=== PATIENT | female | born 1950 | race Caucasian/White ===

== ENCOUNTER 2020-05-28 11:12 | Inpatient (IN) ==
[2020-05-28 11:56] LABS: ABS Lymphocytes 0.3 10^3/ul (1.0-4.8); ABS Monocytes 0.2 10^3/ul (0-0.8); ABS Neutrophils 4.4 10^3/ul (1.5-7.7); Eosinophil % 0.5 %; Hematocrit 28 % (35-47); Hemoglobin 9.3 g/dL (12.0-16.0); Lymphocyte % 6.2 %; Mean Corpuscular HGB Conc 34 g/dL (31-36); Mean Corpuscular Hemoglobin 35 pg (27-31); Mean Corpuscular Volume 102 fL (80-97); Mean Platelet Volume 9.2 fL (7.4-10.4); Nucleated Red Blood Cells % 0.1; Platelet Count 148 10^3/uL (150-450); Red Cell Distribution Width 16 % (10-15); White Blood Count 4.9 10^3/uL (3.5-10.8)
[2020-05-28 12:12] LABS: ALT 6 U/L (7-52); AST 49 U/L (13-39); Albumin 2.8 g/dL (3.2-5.2); Alkaline Phosphatase 262 U/L (34-104); Anion Gap 9 mmol/L (2-11); BUN/Creatinine Ratio 15.7 (8-20); Blood Urea Nitrogen 25 mg/dL (6-24); CO2 Carbon Dioxide 23 mmol/L (22-32); Calcium 9.2 mg/dL (8.6-10.3); Chloride 102 mmol/L (101-111); EGFR African American 39.1 (>60); EGFR Non-African American 32.3 (>60); Globulin 2.9 g/dL (2-4); Glucose 122 mg/dL (70-100); Lipase 20 U/L (11.0-82.0); Magnesium 1.6 mg/dL (1.9-2.7); Potassium 3.5 mmol/L (3.5-5.0); Sodium 134 mmol/L (135-145); Total Protein 5.7 g/dL (6.4-8.9)
[2020-05-28 12:16] LABS: INR 1.38 (0.82-1.09)
[2020-05-28 12:22] LABS: Alcohol, S < 10 mg/dL (<10)
[2020-05-28] MEDS ORDERED: Iodixanol (CONTRAST) 320 MG/ML 100 ML SDV IV ONE (12:40)
[2020-05-28] MEDS ORDERED: NS 0.9% 1000 ml BAG 1,000 ML IV ONE (12:42)
[2020-05-28] MEDS ORDERED: Magnesium Sulfate 2 gm BAG 2 GM/50 ML BAG IVPB ONE (13:11)
[2020-05-28] MEDS ORDERED: Morphine 4 MG/ML VIAL (1 ml) IV ONE (14:36)
[2020-05-28] MEDS: Heparin 5000 UNITS/ML 1 mL VIAL SUBCUT SCH (22:02)
[2020-05-29] MEDS: Ondansetron 4 mg VIAL 2 MG/ML 2 ml VIAL IV PRN ×4 (01:20→23:27)
[2020-05-29] MEDS: Heparin 5000 UNITS/ML 1 mL VIAL SUBCUT SCH ×3 (05:08→21:54)
[2020-05-29 05:54] LABS: ABS Eosinophils 0.1 10^3/ul (0-0.6); ABS Lymphocytes 0.4 10^3/ul (1.0-4.8); ABS Monocytes 0.2 10^3/ul (0-0.8); ABS Neutrophils 3.1 10^3/ul (1.5-7.7); Eosinophil % 1.4 %; Hematocrit 26 % (35-47); Hemoglobin 8.7 g/dL (12.0-16.0); Lymphocyte % 10.1 %; Mean Corpuscular HGB Conc 34 g/dL (31-36); Mean Corpuscular Hemoglobin 35 pg (27-31); Mean Corpuscular Volume 103 fL (80-97); Mean Platelet Volume 9.3 fL (7.4-10.4); Platelet Count 125 10^3/uL (150-450); Red Blood Count 2.51 10^6 /uL (3.70-4.87); Red Cell Distribution Width 16 % (10-15); White Blood Count 3.7 10^3/uL (3.5-10.8)
[2020-05-29 06:18] LABS: Albumin 2.3 g/dL (3.2-5.2); Albumin/Globulin Ratio 0.9 (1-3); BUN/Creatinine Ratio 16.1 (8-20); Calcium 8.6 mg/dL (8.6-10.3); EGFR African American 44.2 (>60); EGFR Non-African American 36.5 (>60); Globulin 2.5 g/dL (2-4); Potassium 3.4 mmol/L (3.5-5.0); Total Protein 4.8 g/dL (6.4-8.9)
[2020-05-29] MEDS ORDERED: ALBUMIN HUMAN 25% IV SCH ×2 (12:00→16:00)
[2020-05-29 13:44] LABS: Body Fluid Source Peritonial Fluid
[2020-05-29] MEDS ORDERED: cefTRIAXone 1 gm/50 mL NS BAG 1 GM/50 ML BAG IVPB SCH (14:00)
[2020-05-29 14:17] LABS: Carcinoembryonic Antigen 4.5 ng/mL (0.1-5.0)
[2020-05-29] MEDS: cefTRIAXone 2 GM ADDV.VIAL 2 GM in NS 0.9% 100 ml BAG 100 ML IV SCH (14:17)
[2020-05-29] MEDS ORDERED: LORazepam 2 mg VIAL 1 ml IV PUSH ONE (14:37)
[2020-05-29] MEDS ORDERED: Lorazepam PYXIS KEY PRN (14:37)
[2020-05-29 14:45] LABS: Folate 1.97 ng/mL (>3.99)
[2020-05-29 15:47] LABS: Body Fluid Mono 20 %; Body Fluid Other Cells 1
[2020-05-29] MEDS ORDERED: Albumin Human 25% 25 GM/100 ML BTL IV ONE ×2 (16:00→16:30)
[2020-05-29] MEDS ORDERED: Albumin Human 25% 25 GM/100 ML BTL IV SCH (16:01)
[2020-05-29] MEDS ORDERED: Albumin Human 25% 12.5 GM/50 ML BTL IV ONE (17:30)
[2020-05-30] MEDS: Heparin 5000 UNITS/ML 1 mL VIAL SUBCUT SCH ×3 (05:57→21:19)
[2020-05-30 07:24] LABS: INR 1.44 (0.82-1.09)
[2020-05-30 07:31] LABS: ABS Lymphocytes 0.5 10^3/ul (1.0-4.8); ABS Monocytes 0.2 10^3/ul (0-0.8); ABS Neutrophils 3.8 10^3/ul (1.5-7.7); Eosinophil % 0.6 %; Hematocrit 24 % (35-47); Hemoglobin 8.2 g/dL (12.0-16.0); Lymphocyte % 11.8 %; Mean Corpuscular HGB Conc 34 g/dL (31-36); Mean Corpuscular Hemoglobin 35 pg (27-31); Mean Corpuscular Volume 104 fL (80-97); Mean Platelet Volume 8.9 fL (7.4-10.4); Platelet Count 144 10^3/uL (150-450); Red Blood Count 2.34 10^6 /uL (3.70-4.87); Red Cell Distribution Width 16 % (10-15); White Blood Count 4.6 10^3/uL (3.5-10.8)
[2020-05-30] MEDS ORDERED: LORazepam 2 mg VIAL 1 ml IV PUSH ONE (08:00)
[2020-05-30 09:31] LABS: Albumin 3.1 g/dL (3.2-5.2); Albumin/Globulin Ratio 1.3 (1-3); BUN/Creatinine Ratio 16.3 (8-20); Calcium 8.7 mg/dL (8.6-10.3); EGFR African American 40.8 (>60); EGFR Non-African American 33.8 (>60); Globulin 2.4 g/dL (2-4); Potassium 3.7 mmol/L (3.5-5.0); Total Bilirubin 1.4 mg/dL (0.2-1.0); Total Protein 5.5 g/dL (6.4-8.9)
[2020-05-30] MEDS ORDERED: Albumin Human 25% 25 GM/100 ML BTL IV ONE (10:19)
[2020-05-30 12:09] LABS: Lactate Dehydrogenase, BF 81 U/L
[2020-05-30] MEDS ORDERED: Lorazepam PYXIS KEY ONE (13:06)
[2020-05-30] MEDS ORDERED: LORazepam 2 mg VIAL 1 ml ONE (13:07)
[2020-05-30] MEDS ORDERED: Lorazepam PYXIS KEY PRN ×4 (13:42→15:42)
[2020-05-30] MEDS ORDERED: Thiamine 100 MG/ML 2 ml VIAL 100 MG, Folic Acid 1 MG, Multiple Vitamin IV ADULT 10 ML i... IV ONE (14:00)
[2020-05-30] MEDS: cefTRIAXone 2 GM ADDV.VIAL 2 GM in NS 0.9% 100 ml BAG 100 ML IV SCH (14:34)
[2020-05-30 15:07] LABS: Albumin, BF 1.7 g/dL; Fluid Type, Albumin ASCITES
[2020-05-30 15:15] LABS: Fluid Type, Glucose PERITONEAL; Glucose, BF 95 mg/dL
[2020-05-30 15:17] LABS: Fluid Type, Protein, Total PERITONEAL
[2020-05-30] MEDS ORDERED: LORazepam 2 mg VIAL 1 ml IV PUSH SCH (16:00)
[2020-05-30] MEDS: LORazepam 2 mg VIAL 1 ml IV PUSH SCH (18:13)
[2020-05-31] MEDS: LORazepam 2 mg VIAL 1 ml IV PUSH SCH ×7 (00:32→22:32)
[2020-05-31] MEDS: Heparin 5000 UNITS/ML 1 mL VIAL SUBCUT SCH ×4 (06:27→22:31)
[2020-05-31 07:40] LABS: LDH 167 U/L (140-271)
[2020-05-31 11:30] LABS: Hematocrit 25 % (35-47); Hemoglobin 8.7 g/dL (12.0-16.0); Mean Corpuscular HGB Conc 34 g/dL (31-36); Mean Corpuscular Hemoglobin 35 pg (27-31); Mean Corpuscular Volume 102 fL (80-97); Mean Platelet Volume 8.6 fL (7.4-10.4); Platelet Count 139 10^3/uL (150-450); Red Blood Count 2.48 10^6 /uL (3.70-4.87); Red Cell Distribution Width 16 % (10-15); White Blood Count 4.2 10^3/uL (3.5-10.8)
[2020-05-31 11:39] LABS: Albumin 2.5 g/dL (3.2-5.2); Albumin/Globulin Ratio 1.1 (1-3); BUN/Creatinine Ratio 16.3 (8-20); Calcium 8.6 mg/dL (8.6-10.3); EGFR African American 42.8 (>60); EGFR Non-African American 35.3 (>60); Globulin 2.2 g/dL (2-4); Magnesium 1.8 mg/dL (1.9-2.7); Potassium 3.6 mmol/L (3.5-5.0); Total Bilirubin 1.1 mg/dL (0.2-1.0); Total Protein 4.7 g/dL (6.4-8.9)
[2020-05-31 12:32] LABS: Hepatitis B Surface Antigen Nonreactive (Nonreactive)
[2020-05-31 12:37] LABS: Hepatitis A Ab IgM Negative (Negative); Hepatitis B Core IgM Nonreactive (Nonreactive)
[2020-05-31 12:49] LABS: Hepatitis C Antibody Negative (Negative)
[2020-05-31] MEDS: cefTRIAXone 2 GM ADDV.VIAL 2 GM in NS 0.9% 100 ml BAG 100 ML IV SCH (14:24)
[2020-06-01] MEDS: LORazepam 2 mg VIAL 1 ml IV PUSH SCH ×6 (00:52→21:50)
[2020-06-01] MEDS: Heparin 5000 UNITS/ML 1 mL VIAL SUBCUT SCH ×4 (04:59→20:49)
[2020-06-01 06:45] LABS: Hematocrit 23 % (35-47); Hemoglobin 7.7 g/dL (12.0-16.0); Mean Corpuscular HGB Conc 34 g/dL (31-36); Mean Corpuscular Hemoglobin 35 pg (27-31); Mean Corpuscular Volume 104 fL (80-97); Mean Platelet Volume 9.1 fL (7.4-10.4); Platelet Count 134 10^3/uL (150-450); Red Blood Count 2.19 10^6 /uL (3.70-4.87); Red Cell Distribution Width 16 % (10-15); White Blood Count 3.5 10^3/uL (3.5-10.8)
[2020-06-01 06:58] LABS: Anion Gap 7 mmol/L (2-11); BUN/Creatinine Ratio 15.2 (8-20); Blood Urea Nitrogen 24 mg/dL (6-24); CO2 Carbon Dioxide 23 mmol/L (22-32); Calcium 8.4 mg/dL (8.6-10.3); Chloride 109 mmol/L (101-111); EGFR African American 39.4 (>60); EGFR Non-African American 32.5 (>60); Glucose 97 mg/dL (70-100); Sodium 139 mmol/L (135-145)
[2020-06-01] MEDS ORDERED: Magnesium Sulfate 2 gm BAG 2 GM/50 ML BAG IVPB ONE (07:42)
[2020-06-01] MEDS: KCL 20 MEQ/100 ML IVPREMIX 20 MEQ/100 ML BAG IV SCH ×3 (10:43→18:21)
[2020-06-01 11:29] LABS: % Iron Saturation 29 % (15-55); Iron 30 ug/dL (50-212); Total Iron Binding Capacity 105 mcg/dL (250-450); Transferrin < 75 mg/dL (203-362); Unsaturated Iron Binding < 90 ug/dL
[2020-06-01 11:49] LABS: Ferritin 766.5 ng/mL (11-307)
[2020-06-01] MEDS: cefTRIAXone 2 GM ADDV.VIAL 2 GM in NS 0.9% 100 ml BAG 100 ML IV SCH (14:22)
[2020-06-01] MEDS ORDERED: KCL 20 MEQ/100 ML IVPREMIX 20 MEQ/100 ML BAG ONE (20:22)
[2020-06-02] MEDS: KCL 20 MEQ/100 ML IVPREMIX 20 MEQ/100 ML BAG IV SCH (00:15)
[2020-06-02] MEDS ORDERED: Lorazepam PYXIS KEY PRN (03:26)
[2020-06-02] MEDS ORDERED: LORazepam 2 mg VIAL 1 ml IV PUSH ONE (03:26)
[2020-06-02] MEDS: LORazepam 2 mg VIAL 1 ml IV PUSH SCH ×6 (03:36→23:54)
[2020-06-02] MEDS: Heparin 5000 UNITS/ML 1 mL VIAL SUBCUT SCH ×3 (04:59→21:14)
[2020-06-02 06:25] LABS: Urine Appearance Cloudy; Urine Bilirubin Negative (Negative); Urine Blood 1+ (Negative); Urine Color Amber; Urine Glucose Negative (Negative); Urine Ketones Trace (Negative); Urine Nitrite Negative (Negative); Urine Protein 1+(30 mg/dL) (Negative); Urine Specific Gravity 1.021 (1.010-1.030); Urine Urobilinogen Negative (Negative)
[2020-06-02 06:43] LABS: Urine Bacteria 1+ (Absent); Urine Granular Casts Present (Absent); Urine Red Blood Cell Trace(0-2/hpf) (Absent); Urine Squamous Epithelial Cell Present (Absent); Urine White Blood Cell 1+(6-10/hpf) (Absent)
[2020-06-02 11:25] LABS: ABS Eosinophils 0.1 10^3/ul (0-0.6); ABS Lymphocytes 0.5 10^3/ul (1.0-4.8); ABS Monocytes 0.2 10^3/ul (0-0.8); ABS Neutrophils 3.5 10^3/ul (1.5-7.7); Eosinophil % 1.3 %; Hematocrit 24 % (35-47); Hemoglobin 8.1 g/dL (12.0-16.0); Lymphocyte % 11.7 %; Mean Corpuscular HGB Conc 33 g/dL (31-36); Mean Corpuscular Hemoglobin 34 pg (27-31); Mean Corpuscular Volume 103 fL (80-97); Mean Platelet Volume 8.9 fL (7.4-10.4); Platelet Count 154 10^3/uL (150-450); Red Blood Count 2.36 10^6 /uL (3.70-4.87); Red Cell Distribution Width 16 % (10-15); White Blood Count 4.3 10^3/uL (3.5-10.8)
[2020-06-02 11:45] LABS: Albumin 2.2 g/dL (3.2-5.2); BUN/Creatinine Ratio 17.5 (8-20); Calcium 8.3 mg/dL (8.6-10.3); EGFR African American 46.4 (>60); EGFR Non-African American 38.3 (>60); Globulin 2.3 g/dL (2-4); Potassium 3.9 mmol/L (3.5-5.0); Total Bilirubin 0.8 mg/dL (0.2-1.0); Total Protein 4.5 g/dL (6.4-8.9)
[2020-06-02] MEDS: cefTRIAXone 2 GM ADDV.VIAL 2 GM in NS 0.9% 100 ml BAG 100 ML IV SCH (13:47)
[2020-06-03] MEDS: LORazepam 2 mg VIAL 1 ml IV PUSH SCH ×5 (04:09→17:21)
[2020-06-03] MEDS: Heparin 5000 UNITS/ML 1 mL VIAL SUBCUT SCH ×3 (07:41→22:01)
[2020-06-03] MEDS ORDERED: Thiamine IV 100 MG/ML VIAL (only for Bannana Bags !) IVPB SCH (09:00)
[2020-06-03 09:16] LABS: ABS Eosinophils 0.1 10^3/ul (0-0.6); ABS Lymphocytes 0.6 10^3/ul (1.0-4.8); ABS Monocytes 0.3 10^3/ul (0-0.8); ABS Neutrophils 3.8 10^3/ul (1.5-7.7); Eosinophil % 2.2 %; Hematocrit 26 % (35-47); Hemoglobin 8.5 g/dL (12.0-16.0); Lymphocyte % 12.2 %; Mean Corpuscular HGB Conc 33 g/dL (31-36); Mean Corpuscular Hemoglobin 34 pg (27-31); Mean Corpuscular Volume 104 fL (80-97); Mean Platelet Volume 9.1 fL (7.4-10.4); Platelet Count 150 10^3/uL (150-450); Red Blood Count 2.49 10^6 /uL (3.70-4.87); Red Cell Distribution Width 16 % (10-15); White Blood Count 4.7 10^3/uL (3.5-10.8)
[2020-06-03 09:31] LABS: Albumin 2.3 g/dL (3.2-5.2); Albumin/Globulin Ratio 0.9 (1-3); BUN/Creatinine Ratio 18.5 (8-20); Calcium 8.6 mg/dL (8.6-10.3); EGFR African American 47.2 (>60); Globulin 2.7 g/dL (2-4); Potassium 3.7 mmol/L (3.5-5.0)
[2020-06-03] MEDS: Thiamine IV 100 MG in NS 0.9% 50 ML Q24H IV SCH (09:45)
[2020-06-03] MEDS: Lactulose 30 ml UDC PO SCH (22:01)
[2020-06-04] MEDS: Heparin 5000 UNITS/ML 1 mL VIAL SUBCUT SCH ×3 (06:13→21:55)
[2020-06-04 08:12] LABS: ActiTest Interpretation no activity; Alanine Aminotransferase (ALT) 9 U/L (7-45); Alpha-2-Macroglobulin, S 104 mg/dL (100 - 280); BioPredictive Serial Number 3250802; FibroTest Interpretation moderate fibrosis; Gamma Glutamyltransferase GGT 394 U/L (5 - 36)
[2020-06-04] MEDS: Lactulose 30 ml UDC PO SCH ×3 (10:24→21:55)
[2020-06-04] MEDS: Thiamine IV 100 MG in NS 0.9% 50 ML Q24H IV SCH (10:30)
[2020-06-04 13:32] LABS: ABS Eosinophils 0.1 10^3/ul (0-0.6); ABS Lymphocytes 0.6 10^3/ul (1.0-4.8); ABS Monocytes 0.2 10^3/ul (0-0.8); ABS Neutrophils 4.8 10^3/ul (1.5-7.7); Eosinophil % 1.2 %; Hematocrit 28 % (35-47); Hemoglobin 9.4 g/dL (12.0-16.0); Lymphocyte % 11.2 %; Mean Corpuscular HGB Conc 34 g/dL (31-36); Mean Corpuscular Hemoglobin 35 pg (27-31); Mean Corpuscular Volume 105 fL (80-97); Mean Platelet Volume 9.3 fL (7.4-10.4); Nucleated Red Blood Cells % 0.1; Platelet Count 172 10^3/uL (150-450); Red Blood Count 2.65 10^6 /uL (3.70-4.87); Red Cell Distribution Width 16 % (10-15); White Blood Count 5.7 10^3/uL (3.5-10.8)
[2020-06-04 13:59] LABS: Troponin I 0.04 ng/mL (<0.03)
[2020-06-04 14:56] LABS: Albumin 2.7 g/dL (3.2-5.2); Anion Gap 8 mmol/L (2-11); CO2 Carbon Dioxide 21 mmol/L (22-32); Calcium 8.8 mg/dL (8.6-10.3); Chloride 113 mmol/L (101-111); Potassium 4.1 mmol/L (3.5-5.0); Sodium 142 mmol/L (135-145)
[2020-06-04 15:02] LABS: ALT 10 U/L (7-52); AST 60 U/L (13-39); Alkaline Phosphatase 261 U/L (34-104); BUN/Creatinine Ratio 20.6 (8-20); Blood Urea Nitrogen 26 mg/dL (6-24); EGFR African American 51.1 (>60); EGFR Non-African American 42.2 (>60); Globulin 2.8 g/dL (2-4); Glucose 105 mg/dL (70-100); Total Protein 5.5 g/dL (6.4-8.9)
[2020-06-04 17:00] LABS: Troponin I 0.03 ng/mL (<0.03)
[2020-06-05] MEDS: Heparin 5000 UNITS/ML 1 mL VIAL SUBCUT SCH ×3 (06:47→21:12)
[2020-06-05 08:20] LABS: ABS Eosinophils 0.1 10^3/ul (0-0.6); ABS Lymphocytes 0.6 10^3/ul (1.0-4.8); ABS Monocytes 0.2 10^3/ul (0-0.8); ABS Neutrophils 3.9 10^3/ul (1.5-7.7); Eosinophil % 2.3 %; Hematocrit 25 % (35-47); Hemoglobin 8.4 g/dL (12.0-16.0); Lymphocyte % 11.8 %; Mean Corpuscular HGB Conc 33 g/dL (31-36); Mean Corpuscular Hemoglobin 35 pg (27-31); Mean Corpuscular Volume 105 fL (80-97); Platelet Count 146 10^3/uL (150-450); Red Blood Count 2.43 10^6 /uL (3.70-4.87); Red Cell Distribution Width 16 % (10-15); White Blood Count 4.9 10^3/uL (3.5-10.8)
[2020-06-05 08:37] LABS: Albumin 2.3 g/dL (3.2-5.2); Albumin/Globulin Ratio 0.9 (1-3); BUN/Creatinine Ratio 23.9 (8-20); Calcium 8.5 mg/dL (8.6-10.3); EGFR African American 57.9 (>60); EGFR Non-African American 47.9 (>60); Globulin 2.7 g/dL (2-4); Potassium 3.7 mmol/L (3.5-5.0); Total Bilirubin 1.3 mg/dL (0.2-1.0)
[2020-06-05] MEDS: Lactulose 30 ml UDC PO SCH ×4 (09:44→21:11)
[2020-06-05] MEDS: Thiamine IV 100 MG in NS 0.9% 50 ML Q24H IV SCH (09:47)
[2020-06-05] MEDS: Ondansetron 4 mg VIAL 2 MG/ML 2 ml VIAL IV PRN (21:21)
[2020-06-05] MEDS ORDERED: Lidocaine PATCH 5% PATCH TRANSDERM PRN (21:44)
[2020-06-06] MEDS: Heparin 5000 UNITS/ML 1 mL VIAL SUBCUT SCH ×3 (07:17→21:10)
[2020-06-06 09:19] LABS: ABS Basophils 0.1 10^3/ul (0-0.2); ABS Eosinophils 0.1 10^3/ul (0-0.6); ABS Lymphocytes 0.7 10^3/ul (1.0-4.8); ABS Monocytes 0.3 10^3/ul (0-0.8); ABS Neutrophils 4.8 10^3/ul (1.5-7.7); Eosinophil % 1.9 %; Hematocrit 26 % (35-47); Hemoglobin 8.5 g/dL (12.0-16.0); Lymphocyte % 11.9 %; Mean Corpuscular HGB Conc 33 g/dL (31-36); Mean Corpuscular Hemoglobin 35 pg (27-31); Mean Corpuscular Volume 105 fL (80-97); Mean Platelet Volume 9.5 fL (7.4-10.4); Nucleated Red Blood Cells % 0.1; Platelet Count 154 10^3/uL (150-450); Red Blood Count 2.45 10^6 /uL (3.70-4.87); Red Cell Distribution Width 17 % (10-15); White Blood Count 5.9 10^3/uL (3.5-10.8)
[2020-06-06] MEDS: Lactulose 30 ml UDC PO SCH ×3 (09:37→21:10)
[2020-06-06] MEDS: Thiamine IV 100 MG in NS 0.9% 50 ML Q24H IV SCH (09:37)
[2020-06-06 09:43] LABS: Albumin 2.3 g/dL (3.2-5.2); Albumin/Globulin Ratio 0.9 (1-3); BUN/Creatinine Ratio 22.6 (8-20); Calcium 8.5 mg/dL (8.6-10.3); Globulin 2.7 g/dL (2-4); Potassium 3.9 mmol/L (3.5-5.0); Total Bilirubin 1.2 mg/dL (0.2-1.0)
[2020-06-06] MEDS: Lidocaine Patch REMOVE PATCH PATCH OFF SCH (09:48)
[2020-06-06] MEDS ORDERED: Morphine 2 MG/ML SYRINGE IV ONE (13:33)
[2020-06-06 15:04] LABS: INR 1.18 (0.82-1.09)
[2020-06-06] MEDS ORDERED: Morphine 2 MG/ML SYRINGE IV PRN (16:24)
[2020-06-06] MEDS: Morphine 2 MG/ML SYRINGE IV PRN ×2 (17:51→23:05)
[2020-06-06] MEDS: Collagenase 250 units/gm OINT 1 tube TOPICAL SCH (21:10)
[2020-06-07] MEDS: diPHENhydraMINE IV 50 MG/ML 1 ml VIAL (BENADRYL) IV PRN (04:56)
[2020-06-07] MEDS: Heparin 5000 UNITS/ML 1 mL VIAL SUBCUT SCH ×3 (04:57→22:24)
[2020-06-07] MEDS: Lactulose 30 ml UDC PO SCH ×4 (10:04→20:22)
[2020-06-07] MEDS: Collagenase 250 units/gm OINT 1 tube TOPICAL SCH ×2 (10:05→20:32)
[2020-06-07] MEDS: Lidocaine Patch REMOVE PATCH PATCH OFF SCH (10:14)
[2020-06-07] MEDS: Thiamine IV 100 MG in NS 0.9% 50 ML Q24H IV SCH (10:14)
[2020-06-07] MEDS: Morphine 2 MG/ML SYRINGE IV PRN ×2 (10:14→16:17)
[2020-06-07] MEDS ORDERED: Albumin Human 25% 12.5 GM/50 ML BTL IV ONE (17:00)
[2020-06-07] MEDS ORDERED: Albumin Human 25% 25 GM/100 ML BTL IV ONE (18:00)
[2020-06-08] MEDS: Heparin 5000 UNITS/ML 1 mL VIAL SUBCUT SCH ×3 (05:48→21:30)
[2020-06-08 05:53] LABS: ABS Eosinophils 0.1 10^3/ul (0-0.6); ABS Lymphocytes 0.9 10^3/ul (1.0-4.8); ABS Monocytes 0.4 10^3/ul (0-0.8); ABS Neutrophils 4.6 10^3/ul (1.5-7.7); Hematocrit 26 % (35-47); Hemoglobin 8.6 g/dL (12.0-16.0); Lymphocyte % 15.7 %; Mean Corpuscular HGB Conc 33 g/dL (31-36); Mean Corpuscular Hemoglobin 34 pg (27-31); Mean Corpuscular Volume 104 fL (80-97); Mean Platelet Volume 9.1 fL (7.4-10.4); Platelet Count 166 10^3/uL (150-450); Red Blood Count 2.53 10^6 /uL (3.70-4.87); Red Cell Distribution Width 16 % (10-15); White Blood Count 6.1 10^3/uL (3.5-10.8)
[2020-06-08 06:16] LABS: BUN/Creatinine Ratio 21.5 (8-20); EGFR African American 47.2 (>60); Potassium 3.6 mmol/L (3.5-5.0)
[2020-06-08] MEDS: Thiamine IV 100 MG in NS 0.9% 50 ML Q24H IV SCH (09:26)
[2020-06-08] MEDS: Lactulose 30 ml UDC PO SCH ×4 (09:30→21:28)
[2020-06-08] MEDS: Lidocaine Patch REMOVE PATCH PATCH OFF SCH (10:00)
[2020-06-08] MEDS: Collagenase 250 units/gm OINT 1 tube TOPICAL SCH ×2 (10:19→21:33)
[2020-06-08] MEDS: Morphine 2 MG/ML SYRINGE IV PRN (10:27)
[2020-06-09] MEDS: Heparin 5000 UNITS/ML 1 mL VIAL SUBCUT SCH ×3 (05:44→22:31)
[2020-06-09] MEDS: Lactulose 30 ml UDC PO SCH ×4 (07:58→20:24)
[2020-06-09] MEDS: Morphine 2 MG/ML SYRINGE IV PRN (08:01)
[2020-06-09] MEDS: Thiamine IV 100 MG in NS 0.9% 50 ML Q24H IV SCH (09:38)
[2020-06-09] MEDS: Lidocaine Patch REMOVE PATCH PATCH OFF SCH (09:44)
[2020-06-09] MEDS: Collagenase 250 units/gm OINT 1 tube TOPICAL SCH ×2 (10:30→20:25)
[2020-06-09 11:19] LABS: Hematocrit 28 % (35-47); Hemoglobin 9.2 g/dL (12.0-16.0); Mean Corpuscular HGB Conc 33 g/dL (31-36); Mean Corpuscular Hemoglobin 35 pg (27-31); Mean Corpuscular Volume 106 fL (80-97); Mean Platelet Volume 9.9 fL (7.4-10.4); Platelet Count 197 10^3/uL (150-450); Red Blood Count 2.67 10^6 /uL (3.70-4.87); Red Cell Distribution Width 17 % (10-15); White Blood Count 9.2 10^3/uL (3.5-10.8)
[2020-06-09 11:34] LABS: BUN/Creatinine Ratio 18.8 (8-20); Calcium 8.1 mg/dL (8.6-10.3); EGFR African American 37.4 (>60); EGFR Non-African American 30.9 (>60); Potassium 3.9 mmol/L (3.5-5.0)
[2020-06-09 11:52] LABS: ABS Eosinophils 0.3 10^3/ul (0-0.6); ABS Neutrophils 7.2 10^3/ul (1.5-7.7)
[2020-06-10] MEDS: Heparin 5000 UNITS/ML 1 mL VIAL SUBCUT SCH ×3 (05:34→20:11)
[2020-06-10] MEDS: Morphine 2 MG/ML SYRINGE IV PRN ×3 (05:34→15:22)
[2020-06-10 06:41] LABS: Hematocrit 28 % (35-47); Mean Corpuscular HGB Conc 33 g/dL (31-36); Mean Corpuscular Hemoglobin 35 pg (27-31); Mean Corpuscular Volume 106 fL (80-97); Mean Platelet Volume 9.7 fL (7.4-10.4); Platelet Count 195 10^3/uL (150-450); Red Blood Count 2.58 10^6 /uL (3.70-4.87); Red Cell Distribution Width 17 % (10-15); White Blood Count 9.4 10^3/uL (3.5-10.8)
[2020-06-10 06:56] LABS: Albumin 2.1 g/dL (3.2-5.2); Albumin/Globulin Ratio 0.7 (1-3); BUN/Creatinine Ratio 16.8 (8-20); Calcium 8.2 mg/dL (8.6-10.3); EGFR African American 30.7 (>60); EGFR Non-African American 25.4 (>60); Globulin 2.9 g/dL (2-4); Potassium 4.1 mmol/L (3.5-5.0); Total Bilirubin 1.2 mg/dL (0.2-1.0)
[2020-06-10 07:09] LABS: ABS Eosinophils 0.2 10^3/ul (0-0.6); ABS Lymphocytes 1.2 10^3/ul (1.0-4.8); ABS Monocytes 0.3 10^3/ul (0-0.8); ABS Neutrophils 7.6 10^3/ul (1.5-7.7); Eosinophil % 2.3 %; Lymphocyte % 12.8 %; Nucleated Red Blood Cells % 0.1; Polychromasia 1+
[2020-06-10] MEDS: Lactulose 30 ml UDC PO SCH ×4 (08:41→20:09)
[2020-06-10] MEDS: Collagenase 250 units/gm OINT 1 tube TOPICAL SCH ×2 (08:41→20:11)
[2020-06-10] MEDS: Lidocaine Patch REMOVE PATCH PATCH OFF SCH (08:43)
[2020-06-10] MEDS: Thiamine IV 100 MG in NS 0.9% 50 ML Q24H IV SCH (09:01)
[2020-06-11 06:09] LABS: BUN/Creatinine Ratio 14.3 (8-20); Calcium 8.2 mg/dL (8.6-10.3); EGFR African American 22.3 (>60); EGFR Non-African American 18.5 (>60); Potassium 4.4 mmol/L (3.5-5.0)
[2020-06-11] MEDS: Heparin 5000 UNITS/ML 1 mL VIAL SUBCUT SCH ×3 (06:24→20:53)
[2020-06-11] MEDS: Lactulose 30 ml UDC PO SCH ×4 (09:21→20:53)
[2020-06-11] MEDS: Collagenase 250 units/gm OINT 1 tube TOPICAL SCH ×2 (09:23→21:13)
[2020-06-11] MEDS: Thiamine IV 100 MG in NS 0.9% 50 ML Q24H IV SCH (10:13)
[2020-06-11] MEDS: Lidocaine Patch REMOVE PATCH PATCH OFF SCH (10:23)
[2020-06-11] MEDS ORDERED: Albumin Human 25% 25 GM/100 ML BTL IV ONE (12:58)
[2020-06-11 13:01] LABS: C Reactive Protein 56.24 mg/L (<8.01)
[2020-06-11 13:22] LABS: ABS Basophils 0.1 10^3/ul (0-0.2); ABS Eosinophils 0.2 10^3/ul (0-0.6); ABS Lymphocytes 1.3 10^3/ul (1.0-4.8); ABS Monocytes 0.4 10^3/ul (0-0.8); ABS Neutrophils 7.6 10^3/ul (1.5-7.7); Eosinophil % 1.6 %; Hematocrit 28 % (35-47); Hemoglobin 8.9 g/dL (12.0-16.0); Lymphocyte % 13.5 %; Mean Corpuscular HGB Conc 32 g/dL (31-36); Mean Corpuscular Hemoglobin 35 pg (27-31); Mean Corpuscular Volume 108 fL (80-97); Mean Platelet Volume 9.1 fL (7.4-10.4); Platelet Count 224 10^3/uL (150-450); Red Blood Count 2.57 10^6 /uL (3.70-4.87); Red Cell Distribution Width 17 % (10-15); White Blood Count 9.6 10^3/uL (3.5-10.8)
[2020-06-11] MEDS: Albumin Human 25% 25 GM/100 ML BTL IV SCH ×6 (13:45→20:45)
[2020-06-11] MEDS: Morphine 2 MG/ML SYRINGE IV PRN (17:56)
[2020-06-11] MEDS ORDERED: Naloxone 0.4 mg VIAL 0.4 mg/ml 1 ml VIAL IV PUSH ONE (19:19)
[2020-06-11] MEDS ORDERED: NS 0.9% 250 ml 250 ML IV ONE (19:23)
[2020-06-11] MEDS: Ondansetron 4 mg VIAL 2 MG/ML 2 ml VIAL IV PRN (19:56)
[2020-06-12] MEDS ORDERED: Lactated Ringers 1000 ml BAG 500 ML IV ONE (00:06)
[2020-06-12] MEDS: Lactated Ringers 500 ml BAG 500 ML IV ONE ×2 (01:00→07:17)
[2020-06-12] MEDS ORDERED: Norepinephrine 16MCG/ML IVPRE 4,000 MCG/250 ML BAG IV ONE (01:03)
[2020-06-12] MEDS ORDERED: Lactated Ringers 1000 ml BAG 500 ML IV SCH (01:30)
[2020-06-12] MEDS ORDERED: Norepinephrine 16MCG/ML IVPRE 4,000 MCG/250 ML BAG IV SCH (02:00)
[2020-06-12 04:59] LABS: ABS Eosinophils 0.2 10^3/ul (0-0.6); ABS Lymphocytes 1.1 10^3/ul (1.0-4.8); ABS Monocytes 0.3 10^3/ul (0-0.8); ABS Neutrophils 5.5 10^3/ul (1.5-7.7); Eosinophil % 3.1 %; Hematocrit 21 % (35-47); Lymphocyte % 15.3 %; Mean Corpuscular HGB Conc 33 g/dL (31-36); Mean Corpuscular Hemoglobin 35 pg (27-31); Mean Corpuscular Volume 106 fL (80-97); Mean Platelet Volume 8.8 fL (7.4-10.4); Platelet Count 201 10^3/uL (150-450); Red Cell Distribution Width 18 % (10-15); White Blood Count 7.2 10^3/uL (3.5-10.8)
[2020-06-12 05:11] LABS: Albumin 3.1 g/dL (3.2-5.2); Albumin/Globulin Ratio 1.4 (1-3); C Reactive Protein 37.12 mg/L (<8.01); Calcium 8.2 mg/dL (8.6-10.3); EGFR African American 18.7 (>60); EGFR Non-African American 15.5 (>60); Globulin 2.2 g/dL (2-4); Total Bilirubin 1.3 mg/dL (0.2-1.0); Total Protein 5.3 g/dL (6.4-8.9)
[2020-06-12] MEDS: Heparin 5000 UNITS/ML 1 mL VIAL SUBCUT SCH ×2 (06:27→12:41)
[2020-06-12] MEDS: Lactulose 30 ml UDC PO SCH ×3 (07:38→12:47)
[2020-06-12] MEDS: Thiamine IV 100 MG in NS 0.9% 50 ML Q24H IV SCH (08:27)
[2020-06-12] MEDS: Lidocaine Patch REMOVE PATCH PATCH OFF SCH (08:28)
[2020-06-12] MEDS: Collagenase 250 units/gm OINT 1 tube TOPICAL SCH ×2 (10:09→21:12)
[2020-06-12 12:21] LABS: Urine Appearance Cloudy; Urine Bilirubin Negative (Negative); Urine Blood 1+ (Negative); Urine Color Amber; Urine Glucose Negative (Negative); Urine Ketones Negative (Negative); Urine Nitrite Negative (Negative); Urine Protein 1+(30 mg/dL) (Negative); Urine Specific Gravity 1.019 (1.010-1.030); Urine Urobilinogen Negative (Negative)
[2020-06-12 12:30] LABS: Urine Creatinine Concentration 143.96 mg/dL; Urine Sodium Concentration < 18 mmol/L
[2020-06-12 12:35] LABS: Urine Bacteria Absent (Absent); Urine Red Blood Cell Trace(0-2/hpf) (Absent); Urine Squamous Epithelial Cell Present (Absent); Urine White Blood Cell Trace(0-5/hpf) (Absent)
[2020-06-12] MEDS: Albumin Human 25% 25 GM/100 ML BTL IV SCH ×4 (12:56→15:44)
[2020-06-12 13:06] LABS: Urine TP Concentration 252 mg/dL
[2020-06-12] MEDS ORDERED: Morphine ORAL CONCENTRATE 5 MG/0.25 ML ORAL.SYRIN SL PRN (14:49)
[2020-06-12] MEDS ORDERED: CMCS: Saliva Substitute (NF) 1 SPRAY BTL MT PRN (14:49)
[2020-06-12] MEDS: Morphine ORAL CONCENTRATE 5 MG/0.25 ML ORAL.SYRIN SL PRN (15:43)
[2020-06-13] MEDS: Collagenase 250 units/gm OINT 1 tube TOPICAL SCH ×3 (09:27→20:55)
[2020-06-13] MEDS: Lidocaine Patch REMOVE PATCH PATCH OFF SCH (09:28)
[2020-06-13] MEDS: Morphine ORAL CONCENTRATE 5 MG/0.25 ML ORAL.SYRIN SL PRN ×2 (10:26→21:34)
[2020-06-13] MEDS: diPHENhydraMINE IV 50 MG/ML 1 ml VIAL (BENADRYL) IV PRN (21:34)
[2020-06-13 21:53] VITALS: BP 82/46
[2020-06-14] MEDS: Lidocaine Patch REMOVE PATCH PATCH OFF SCH (12:16)
[2020-06-14] MEDS: Collagenase 250 units/gm OINT 1 tube TOPICAL SCH (12:17)
== END 2020-06-14 16:15 | disposition hospice, home (50) | DRG 432 ==
LOC: ED 11:12 → MED 15:51 → ICU 06-11 23:47 → MED 06-12 17:27
PROVIDERS: ADMIT Internal Medicine; ATTEND Hospitalist